=== PATIENT | female | born 1950 | race Two or more races ===

== ENCOUNTER 2022-04-26 10:28 | Outpatient (REF) | payer MEDICARE, SELFPAY ==
--- NOTE | ~2022-04-26 | MM_ITS ---
EXAMINATION: MM SCREENING DIGITAL BREAST TOMOSYNTHESIS, BILATERAL CLINICAL INFORMATION: Screening. Asymptomatic. The lifetime risk of breast cancer based on the Tyrer-Cuzick Model is 2.4%. COMPARISON: Mammography: December 15, 2014 TECHNIQUE: Digital breast tomosynthesis is performed in both the craniocaudal and mediolateral oblique views along with computer-aided detection (CAD). Synthesized 2D images are generated from the tomosynthesis. FINDINGS: The breasts are almost entirely fatty (ACR BI-RADS breast composition Category a). There are no significant masses, abnormal calcifications, or other abnormalities. MM/MM tomosynthesis screening BI IMPRESSION: No significant changes from prior exam. ASSESSMENT: BI-RADS 1: Negative RECOMMENDATION: Routine annual mammography screening. This patient's information was entered into a reminder system with a target due date for their next mammogram.
== END 2022-04-26 10:29 | disposition home or self-care (01) ==
LOC: HO.MAMMO 10:28
PROVIDERS: PCP Internal Medicine; Visit Provider Internal Medicine
DX: Z12.31 Encounter for screening mammogram for malignant neoplasm of breast (principal)
CPT/HCPCS: 77063; 77067

== ENCOUNTER 2023-04-06 10:38 | Outpatient (REF) | payer MEDICARE, SELFPAY ==
[2023-04-06 12:51] LABS: Alanine Aminotransferase 21 U/L (0-31); Albumin Level 4.3 g/dL (3.5-5.0); Alkaline Phosphatase 94 U/L (39-117); Anion Gap 15 (12-20); Aspartate Amino Transferase 23 U/L (5-31); Bilirubin Total 0.8 mg/dL (0.0-1.0); Blood Urea Nitrogen 15 mg/dL (9-16); Calcium 9.7 mg/dL (8.4-10.2); Carbon Dioxide 26 mmol/L (22-29); Chloride 105 mmol/L (96-108); Cholesterol 234 mg/dL; Estimated Glomerular Filt Rate > 60; Glucose Fasting 122 mg/dL (60-99); HDL Cholesterol 56 mg/dL; LDL Cholesterol Calculated 153 mg/dl; Potassium 4.3 mmol/L (3.3-5.1); Sodium 142 mmol/L (135-145); Triglycerides 127 mg/dL
== END 2023-04-06 10:39 | disposition home or self-care (01) ==
LOC: HO.LAB 10:38
PROVIDERS: PCP Internal Medicine; Visit Provider Internal Medicine
DX: I10 Essential (primary) hypertension (principal); E55.9 Vitamin D deficiency, unspecified
CPT/HCPCS: 36415; 80053; 80061; 82306

== ENCOUNTER 2023-04-13 13:25 | Outpatient (AMB) | payer MEDICARE, SELFPAY ==
--- NOTE | 2023-04-13 13:34 | A.OFFPC_ITS ---
Intake Visit Reasons: SWV G0439 Allergies No Known Allergies Allergy (Verified 08/31/22 10:39) Tobacco use date assessed: 08/31/22 [facility] Medical History Essential hypertension Hypovitaminosis D Obese Surgical History History of tubal ligation Hx of removal of ovary Family History Father Cancer Mother Diabetes Social History Housing: Apartment Alcohol intake: never Patient Tobacco Use Status: Never used Tobacco e-Cigarette/Vaping Use: Never Used Second Hand Smoke Exposure: No service: No Current occupational status: disabled Cognitive needs: No Hearing needs: No Vision needs: No Questionnaire Thrive Questionnaire Date Thrive assessed: 04/07/22 JERRICA-7 AMB Questionnaire JERRICA-7 Date JERRICA - 7 assessed: 04/07/22 Source: Developed by Drs. Melvin Pressley, Eloise Myers, Jose Luis Pinedo and colleagues, with an educational zahira from [employer]. Physical exam (Primary Care) Tobacco/Smoking Status: Tobacco use Status Tobacco use date assessed 08/31/22 08/31/22 10:41 Patient Tobacco Use Status Never used Tobacco 08/31/22 10:41 e-Cigarette/Vaping Use Never Used 08/31/22 10:41 Thrive Assessment: Date of Thrive Assessment Date Thrive assessed 04/07/22 09/15/22 12:55 Coding Diagnoses
[2023-04-13 13:40] VITALS: BP 170/72; PULSE 90; O2SAT 98; BMI 33.0
--- NOTE | 2023-04-13 13:54 | A.OFFVIS_ITS ---
Intake Vital Signs 04/13/23 13:40 04/13/23 13:57 Height 4 ft 11 in Weight 163 lb 3 oz BMI 33.0 BP 170/72 H 170/80 H Blood Pressure Location Lt brachial Lt brachial Position Sitting Sitting Pulse 90 Pulse Source Pulse Oximeter Pulse Oximetry (%) 98 Oxygen Delivery Method Room Air Intake Visit Reasons: RICKY [id number] Intake Note: Patient is here for an Annual Wellness Visit. Television Station Manager Required: No Accompanied by: Self / Same As Patient Allergies No Known Allergies Allergy (Verified 04/13/23 13:59) Medication List - Last Reconciled 04/13/23 by Iona Fisher MD cholecalciferol (vitamin D3) 50 mcg PO DAILY 90 days losartan 50 mg PO DAILY 90 days HPI HPI Comments History of Present Illness Details This is a 73-year-old female that comes for her Medicare wellness exam. Last mammogram was last year. Has never had a colonoscopy and prefer Cologuard. PPP handed to patient. Has never had a bone density. MOLST was done today. Blood pressure elevated and will be recheck in 3 weeks by nurse navigator. [facility] Medical History (Updated 04/13/23 @ 14:22 by Iona Fisher MD) Essential hypertension Hypovitaminosis D Obese Surgical History History of tubal ligation Hx of removal of ovary Family History Father Cancer Mother Diabetes Social History Housing: Apartment Alcohol intake: never Patient Tobacco Use Status: Never used Tobacco e-Cigarette/Vaping Use: Never Used Second Hand Smoke Exposure: No service: No Current occupational status: disabled Cognitive needs: No Hearing needs: No Vision needs: No Questionnaire Medicare Wellness Checkup [age] What gender do you identify with?: female During the past 4 weeks, how much have you been bothered by emotional problems such as feeling anxious, depressed, irritable, sad or downhearted, and blue?: not at all During the past 4 weeks, has your physical & emotional health limited your social activities with family, friends, neighbors, or groups?: not at all During the past 4 weeks, how much bodily pain have you generally had?: moderate pain During the past 4 weeks, was someone available to help you if you needed & wanted help?: no, not at all During the past 4 weeks, what was the hardest physical activity you could do for at least 2 minutes?: moderate Can you get to places out of walking distance without help? (For eg., can you travel alone on buses, taxis or drive your car?): Yes Can you go shopping for groceries or clothes without someone's help?: Yes Can you prepare your own meals?: Yes Can you do your housework without help?: Yes Because of any health problems, do you need the help of another person with your personal care needs such as eating, bathing, dressing or getting around the house?: No Can you handle your own money without help?: No During the past 4 weeks, how would you rate your health in general?: very good During the past 4 weeks how have things been going for you?: very well; could hardly better Are you having difficulties driving your car?: not applicable, I don't use a car Do you always fasten your seat belt when you are in a car?: yes, usually During past 4 weeks, have you been bothered by the following: never: Falling or dizzy when standing up, Sexual problems?, Trouble eating well?, Problems using the telephone? and Tiredness or fatigue? and sometimes: Teeth or denture problems? Have you fallen 2 or more times in the past year?: No Are you afraid of falling?: No Are you a smoker?: no During the past 4 weeks, how many drinks of wine, beer, or other alcoholic beverages did you have?: no alcohol at all Do you exercise for about 20 minutes 3 or more times a week?: yes, all the time Have you been given information to help with the following?: no: Hazards in your house that might hurt you? and no: Keeping track of your medications? How often do you have trouble taking medicines the way you have been told to take them?: I always take medicine as prescribed How confident are you that you can control & manage most of your health problems?: very confident What is your race?: or origin or descent Mini Mental State Exam (MMSE) Orientation What is the (year) (season) (date) (day) (month)?: year, season, date, day and month Where are we (state) (county) (town or city) (hospital) (floor)?: state, county, town or city and hospital/clinic Registration Name of 3 unrelated objects clearly and slowly, then ask patient to repeat all 3 of them. (1st repeat determines score. Make sure they can repeat all three): object 1, object 2 and object 3 Attention & Calculation (CHOOSE ONE) Spell WORLD backwards (DLROW): 4 letters Recall Ask patient to repeat the 3 items from question #3.: object 1, object 2 and object 3 Language Show patient a wristwatch & ask what it is. Repeat for pencil.: watch and pencil Ask the patient to repeat the phrase 'No ifs, ands, or buts' after you.: correct Ask the patient to 'take a piece of paper with their right hand' 'fold paper in half' 'place paper on floor': take paper in right hand, fold paper in half and place paper on floor Print the sentence 'CLOSE YOUR EYES' on a piece. If patient actually closes eyes then score.: followed written direction Give patient a blank piece of paper & ask to write a sentence. Score if it contains a noun & verb.: sentence contains subject and verb Score Score: 27 Activity of Daily Living Bathing - sponge bath, tub bath or shower: receives no assistance (gets in/out by self, if usual bathing means Dressing - getting clothes from closets & drawers, including inner/outer garments & fasteners.: gets clothes & gets completely dressed without help Toileting - going to the 'toilet room' for urine/bowel elimination & cleaning self/arranging clothes: goes to toilet room, cleans self, arranges clothes without help Transfer: moves in & out of bed and chair without help (may use support object) Continence: controls urination/bowel movements completely by self Feeding: feeds self without help Total Score: 0 Information obtained from: patient Using telephone: independent Traveling: independent Shopping: independent Preparing meals: independent Housework: independent Taking medicine: independent Managing money: independent PHQ-9 Over the last 2 weeks, how often have you been bothered by any of the following problems? 1. Little interest or pleasure in doing things: not at all 2. Feeling down, depressed, or hopeless: not at all 3. Trouble falling or staying asleep, or sleeping too much: not at all 4. Feeling tired or having little energy: not at all 5. Poor appetite or overeating: not at all 6. Feeling bad about yourself - or that you are a failure or have let yourself or your family down: not at all 7. Trouble concentrating on things, such as reading the newspaper or watching television: not at all 8. Moving or speaking so slowly that other people could have noticed. Or the opposite - being so fidgety or restless that you have been moving around a lot more than usual: not at all 9. Thoughts that you would be better off or of hurting yourself in some way: not at all Total score: 0 Depression Screening Interpretation: Negative 79562 - PHQ-9 Billing: Yes Source: Developed by Drs. Melvin Pressley, Eloise Myers, Jose Luis Pinedo and colleagues, with an educational zahira from [employer]. Review of Systems Const All systems reviewed & are unremarkable except as noted in HPI and below Eyes Reports no additional complaints, Denies change in vision and Denies other visual disturbances Card Denies chest pain at rest, Denies chest pain with activity, Denies edema, Denies irregular heart rhythm, Denies claudication, Denies dyspnea, Denies dyspnea on exertion, Denies orthopnea, Denies paroxysmal nocturnal dyspnea and Denies slow heart rate Resp Denies cough, Denies dyspnea and Denies dyspnea on exertion GI Denies abdominal pain, Denies change in bowel habits, Denies excessive flatus, Denies nausea and Denies vomiting Denies urinary incontinence, Denies urinary hesitancy and Denies urinary urgency Musc Denies abnormal gait, Denies atrophy, Denies deformity and Denies limited range of motion Skin/Breast Denies bleeding lesions, Denies changing lesions and Denies rash Neuro Denies abnormal gait and Denies lack of coordination Physical Exam Vital Signs: Last Vital Signs Pulse 90 04/13/23 13:40 BP 170/72 H 04/13/23 13:40 Pulse Ox 98 04/13/23 13:40 Oxygen Delivery Method Room Air 04/13/23 13:40 BMI result Body Mass Index 33.0 Resp Auscultation: clear to auscultation bilaterally Cardio Heart sounds: S1 normal heart sound present and S2 normal heart sound present Neuro Gait exam (Neuro): Normal gait present Romberg Test: Negative Extrem General: Yes full ROM Results AMB Hemoglobin A1c AMB Hemoglobin A1c 6.4 % Last Edit by DEBRA Arteaga on 04/13/23 14:07 Results Reviewed Results Reviewed: Laboratory Last Values Hgb A1c (Clinic) 6.4 % (4.0-6.0) H 04/13/23 14:06 Assessment & Plan Assessment & Plan (1) Encounter for Medicare annual wellness exam: Code(s): Z00.00 - Encounter for general adult medical examination without abnormal findings Plan: Repeat in a year. Orders: Orders Lipid Panel 6 Months E78.5 - Hyperlipidemia, unspecified Vitamin D 25-OH Total 6 Months E55.9 - Vitamin D deficiency, unspecified Comprehensive [place]. Panel Fast 6 Months I10 - Essential (primary) hypertension XR DEXA axial skeleton Today N95.9 - Unspecified menopausal and perimenopausal disorder MM screening mammo BI Today Z12.31 - Encounter for screening mammogram for malignant neoplasm of breast AMB Hemoglobin A1c Today Z13.1 - Encounter for screening for diabetes mellitus Referrals Cologuard Test Z12.11 - Encounter for screening for malignant neoplasm of colon, Z12.12 - Encounter for screening for malignant neoplasm of rectum Medications: New atorvastatin 20 mg PO BEDTIME 90 days 90 tabs 1RF E78.00 - Pure hypercholesterolemia, unspecified Quality Reporting (2019) Depression/Bipolar (159/160/161/177) PHQ-9: Total score: 0 Coding Level of Care Code Medicare Subsequent (G0439) Diagnoses Encounter for Medicare annual wellness exam Z00.00 Time Spent (min) 35 Advance Care Planning Advance Care Planning discussion: Completed/Scanned Date of discussion: 04/13/23 Who was present: patient and me
[2023-04-13 13:57] VITALS: BP 170/80
== END 2023-04-13 14:24 | disposition home or self-care (01) ==
PROVIDERS: Visit Provider Internal Medicine
DX: Z00.00 Encounter for general adult medical examination without abnormal findings (principal); Z13.1 Encounter for screening for diabetes mellitus
CPT/HCPCS: 83036; G0439

== ENCOUNTER 2023-05-11 12:22 | Outpatient (REF) | payer MEDICARE, SELFPAY ==
--- NOTE | ~2023-05-11 | MM_ITS ---
EXAMINATION: MM SCREENING DIGITAL BREAST TOMOSYNTHESIS, BILATERAL CLINICAL INFORMATION: Screening. Asymptomatic. COMPARISON: Mammography: This study is compared with prior exams dating back to 2015. TECHNIQUE: Digital breast tomosynthesis is performed in both the craniocaudal and mediolateral oblique views along with computer-aided detection (CAD). Synthesized 2D images are generated from the tomosynthesis. FINDINGS: The breasts are almost entirely fatty (ACR BI-RADS breast composition Category a). There are no significant masses, abnormal calcifications, or other abnormalities. MM/MM tomosynthesis screening BI IMPRESSION: No mammographic evidence of malignancy. ASSESSMENT: BI-RADS BI-RADS 1 - Negative RECOMMENDATION: Routine annual mammography screening. 1 year F/U This examination should not preclude the clinical evaluation of a suspicious palpable abnormality. This patient's information was entered into a reminder system with a target due date for their next mammogram.
--- NOTE | ~2023-05-11 | MM_ITS ---
EXAMINATION: BONE DENSITOMETRY CLINICAL INDICATION: Unspecified menopausal and perimenopausal disorder. COMPARISON: This is the patient's baseline examination. TECHNIQUE: Using a [employer] DXA System (software version: 13.1) manufactured by [employer], dual-energy x-ray absorptiometry was performed of the lumbar spine and left hip. The images are of good technical quality. Summary results are attached. FINDINGS: AP SPINE L1-L4: BMD 1.112 g/cm2, Z-score 0.9, T-score -0.6, normal. LEFT FEMUR, NECK: BMD 0.758 g/cm2, Z-score -0.4, T-score -2.0, osteopenia. LEFT FEMUR, TOTAL: BMD 0.869 g/cm2, Z-score 0.3, T-score -1.1, osteopenia. IDENTIFIED RISK FACTORS: Height loss, left oophorectomy, menopause. HISTORY OF FRACTURE: None listed. MEDICATIONS: Vitamin D. MM/XR DEXA axial skeleton IMPRESSION: 1. DIAGNOSIS: Osteopenia based on the lowest T-score value of -2.0 in the femoral neck applying World Health Organization criteria. 2. 10-YEAR FRACTURE RISK PREDICTION, FRAX: Major osteoporotic fracture (clinical spine, forearm, hip or shoulder) 7.0%. Hip fracture 1.6%. 3. Treatment Recommendations: NOF guidelines recommend consideration for treatment in postmenopausal women and men age 50 and older presenting with the following: -A hip or vertebral (clinical or morphometric) fracture. -T-score less than or equal to -2.5 at the femoral neck or spine after appropriate evaluation to exclude secondary causes. -Low bone mass at the hip or spine and a 10-year fracture probability by FRAX of greater than or equal to 3% for hip fracture or greater than or equal to 20% for major osteoporotic fracture based on the [place] adapted WHO algorithm. 4. Other Recommendations: All treatment decisions require clinical judgment and consideration of individual patient factors, including patient preferences, comorbidities, previous drug use, risk factors not captured in the FRAX model (e.g. frailty, falls, vitamin D deficiency, increased bone turnover, interval significant decline in bone density) and possible under or overestimation of fracture risk by FRAX. Additional medical evaluation for secondary cause of low bone mineral density may be appropriate. FUTURE SCAN RECOMMENDATION: People with diagnosed cases of osteoporosis or at high risk for fracture should have regular bone mineral density tests. For patients eligible for Medicare, routine testing is allowed once every 2 years. The testing frequency can be increased to one year for patients who have rapidly progressing disease, those who are receiving or discontinuing medical therapy to restore bone mass, or have additional risk factors.
== END 2023-05-11 12:23 | disposition home or self-care (01) ==
LOC: HO.MAMMO 12:22
PROVIDERS: PCP Internal Medicine; Visit Provider Internal Medicine
DX: Z12.31 Encounter for screening mammogram for malignant neoplasm of breast (principal); Z13.820 Encounter for screening for osteoporosis; Z78.0 Asymptomatic menopausal state
CPT/HCPCS: 77063; 77067; 77080

== ENCOUNTER → 2023-05-11 13:30 | Outpatient (BNV) | payer MEDICARE, SELFPAY | PROVIDERS: PCP Internal Medicine; Visit Provider Radiology Diagnostic Radiology | DX: Z12.31 Encounter for screening mammogram for malignant neoplasm of breast (principal) | CPT/HCPCS: 77063; 77067; 77080 ==

== ENCOUNTER 2023-10-17 12:23 | Outpatient (AMB) | payer MEDICARE, MEDICAID, SELFPAY ==
[2023-10-17 12:44] VITALS: BP 162/74; BMI 32.3
--- NOTE | 2023-10-17 12:44 | MHC.PC.OV ---
Vital Signs 10/17/23 12:44 10/17/23 13:54 Height 4 ft 11 in Weight 160 lb BMI 32.3 BP 162/74 H 160/70 H Blood Pressure Location Lt brachial Lt brachial Position Sitting Sitting Intake Visit Reasons: bp Intake Note: Patient here for a follow up BP Resort Manager Required: No Accompanied by: Self / Same As Patient Allergies No Known Allergies Allergy (Verified 10/17/23 13:00) Medication List - Last Reconciled 10/17/23 by Iona Fisher MD atorvastatin 20 mg PO BEDTIME 90 days cholecalciferol (vitamin D3) 50 mcg PO DAILY 90 days losartan 50 mg PO DAILY 90 days Tobacco use date assessed: 10/17/23 Fall risk assessment: No Falls in past year Last assessed Fall Risk: 10/17/23 Dental Screening Dental Screen Date: 10/17/23 Did you have a dental visit in the last 12 months?: Yes Did you have a dental problem in the last 6 months where you did not have access to dental care?: No Was dental information given to patient?: Patient has dentist HPI HPI Comments History of Present Illness Details This is a 73-year-old female with hypertension, pure hypercholesterolemia, osteopenia and low vitamin-D that comes today for follow-up on her conditions. Blood pressure elevated but she took it today at a.m. and it was 120/80. Blood pressure will be recheck with nurse navigator in 3 weeks. Lipid panel was ordered. On vitamin-D supplements for her low vitamin-D. Had bone density 2022 showing osteopenia and calcium was added but as per patient calcium gives her a headache. I suggest to take more calcium in her diet. No chest pain or shortness of breath. [facility] Medical History Obese Hypovitaminosis D Essential hypertension Surgical History Hx of removal of ovary History of tubal ligation Family History Father Cancer Mother Diabetes Social History Housing: Apartment Alcohol intake: never Patient Tobacco Use Status: Never used Tobacco e-Cigarette/Vaping Use: Never Used Second Hand Smoke Exposure: No service: No Current occupational status: disabled Cognitive needs: No Hearing needs: No Vision needs: No Questionnaire PHQ-9 Over the last 2 weeks, how often have you been bothered by any of the following problems? 1. Little interest or pleasure in doing things: not at all 2. Feeling down, depressed, or hopeless: not at all 3. Trouble falling or staying asleep, or sleeping too much: not at all 4. Feeling tired or having little energy: not at all 5. Poor appetite or overeating: not at all 6. Feeling bad about yourself - or that you are a failure or have let yourself or your family down: not at all 7. Trouble concentrating on things, such as reading the newspaper or watching television: not at all 8. Moving or speaking so slowly that other people could have noticed. Or the opposite - being so fidgety or restless that you have been moving around a lot more than usual: not at all 9. Thoughts that you would be better off or of hurting yourself in some way: not at all Total score: 0 Depression Screening Interpretation: Negative Depression Screening Done: Yes 99296 - PHQ-9 Billing: Yes Source: Developed by Drs. Melvin Pressley, Eloise Myers, Jose Luis Pinedo and colleagues, with an educational zahira from [employer]. Thrive Questionnaire Date Thrive assessed: 10/17/23 I am a: Patient What is your living situation today?: I have a steady place to live Within the past 12 months, did the food you bought not last and you didn't have the money to get more?: Never true Within the past 12 months, did you worry whether your food would run out before you got money to buy more?: Never true Do you have trouble paying for medicines?: No Do you have trouble getting transportation to medical appointments?: No Do you have trouble paying your heating and electricity bill?: No Do you have trouble taking care of your child, family member or friend?: No Do you have trouble with day-to-day activities such as bathing, preparing meals, shopping, managing finances, etc.?: No Are you currently unemployed and looking for a job?: No Are you interested in more education?: No Please select the resources that you would like help with: None Currently or been in a relationship where the following occur: no concerns reported THRIVE Score: 0 AUDIT C Alcohol Use Questionnaire (AUDIT-C) 1. How often do you have a drink containing alcohol?: Never Total Score: 0 JERRICA-7 AMB Questionnaire JERRICA-7 Date JERRICA - 7 assessed: 10/17/23 Feeling nervous, anxious, or on edge: 0 = Not at all Not being able to stop or control worryin = Not at all Worrying too much about different things: 0 = Not at all Trouble relaxin = Not at all Being so restless that it is hard to sit still: 0 = Not at all Becoming easily annoyed or irritable: 0 = Not at all Feeling afraid as if something awful might happen: 0 = Not at all Total JERRICA-7 score (0-4 normal; 5-9 mild; 10-14 moderate; 15-21 severe): 0 Source: Developed by Drs. Melvin Pressley, Eloise Myers, Jose Luis Pinedo and colleagues, with an educational zahira from [employer]. JERRICA-7 Assessment Billing JERRICA-7 Assessment Tool: JERRICA-7 Assessment 07433 Review of Systems Const All systems reviewed & are unremarkable except as noted in HPI and below Eyes Reports no additional complaints, Denies change in vision and Denies other visual disturbances Card Denies chest pain at rest, Denies chest pain with activity, Denies edema, Denies irregular heart rhythm, Denies claudication, Denies dyspnea, Denies dyspnea on exertion, Denies orthopnea, Denies paroxysmal nocturnal dyspnea and Denies slow heart rate Resp Denies cough, Denies dyspnea and Denies dyspnea on exertion GI Denies abdominal pain, Denies change in bowel habits, Denies excessive flatus, Denies nausea and Denies vomiting Denies urinary incontinence, Denies urinary hesitancy and Denies urinary urgency Musc Denies abnormal gait, Denies atrophy, Denies deformity and Denies limited range of motion Skin/Breast Denies bleeding lesions, Denies changing lesions and Denies rash Neuro Denies abnormal gait, Denies behavioral changes and Denies lack of coordination Psych Denies behavioral changes Physical exam (Primary Care) Vital Signs: Last Vital Signs BP 162/74 H 10/17/23 12:44 BMI result Body Mass Index 32.3 Tobacco/Smoking Status: Tobacco use Status Tobacco use date assessed 10/17/23 10/17/23 12:50 Patient Tobacco Use Status Never used Tobacco 10/17/23 12:50 e-Cigarette/Vaping Use Never Used 10/17/23 12:50 PHQ-9: PHQ-9 Score PHQ-9: Total score 0 10/17/23 13:02 Depression Screening Interpretation: Negative Thrive Assessment: Date of Thrive Assessment Date Thrive assessed 10/17/23 10/17/23 12:53 Currently or been in a relationship where the following occur: no concerns reported Eyes General: appearance normal, both eyes and all related structures Eyelids: Yes eyelids normal Conjunctivae: conjunctivae normal Neck Neck: Yes normal visual inspection and Yes supple Resp Effort & Inspection: normal respiratory effort Auscultation: clear to auscultation bilaterally Cardio Jugular venous distension: no JVD Rate: regular rate Rhythm: regular rhythm Heart sounds: S1 normal heart sound present and S2 normal heart sound present Extrem General: Yes full ROM Assessment and Plan Assessment & Plan (1) Essential hypertension: Code(s): I10 - Essential (primary) hypertension Plan: Continue losartan. Recheck blood pressure with nurse navigator in 3 weeks. Blood pressure goal is equal or less than 130/80. (2) Hypovitaminosis D: Code(s): E55.9 - Vitamin D deficiency, unspecified Plan: Continue vitamin-D supplements. (3) Pure hypercholesterolemia: Code(s): E78.00 - Pure hypercholesterolemia, unspecified Plan: Continue statins. Repeat lipid panel. (4) Osteopenia: Code(s): M85.80 - Other specified disorders of bone density and structure, unspecified site Plan: Increase calcium intake in diet. Repeat bone density in 2 years. Orders: Orders Vitamin D 25-OH Total Today E55.9 - Vitamin D deficiency, unspecified Comprehensive Fleming. Panel Fast Today E78.00 - Pure hypercholesterolemia, unspecified Medications: Refilled cholecalciferol (vitamin D3) 50 mcg PO DAILY 90 tabs 3RF 90 days atorvastatin 20 mg PO BEDTIME 90 tabs 1RF 90 days E78.00 - Pure hypercholesterolemia, unspecified losartan 50 mg PO DAILY 90 tabs 0RF 90 days I10 - Essential (primary) hypertension Coding Level of Care Code Est Pt Level 4 (65562) Diagnoses Essential hypertension I10 Hypovitaminosis D E55.9 Pure hypercholesterolemia E78.00 Osteopenia M85.80 Additional Codes JERRICA-7 Assessment Billing - JERRICA-7 Assessment Tool: JERRICA-7 Assessment 74887 ([id number]) Time Spent (min) 23
[2023-10-17 13:54] VITALS: BP 160/70
== END 2023-10-17 13:11 | disposition home or self-care (01) ==
PROVIDERS: PCP Internal Medicine; Visit Provider Internal Medicine
DX: I10 Essential (primary) hypertension (principal); E55.9 Vitamin D deficiency, unspecified; E78.00 Pure hypercholesterolemia, unspecified; M85.80 Other specified disorders of bone density and structure, unspecified site
CPT/HCPCS: 99214

== ENCOUNTER 2024-04-08 09:31 | Outpatient (REF) | payer MEDICARE, MEDICAID, SELFPAY ==
[2024-04-08 11:34] LABS: Alanine Aminotransferase 13 U/L (0-31); Albumin Level 4.3 g/dL (3.5-5.0); Alkaline Phosphatase 85 U/L (39-117); Anion Gap 11 (12-20); Aspartate Amino Transferase 18 U/L (5-31); Bilirubin Total 0.7 mg/dL (0.0-1.0); Blood Urea Nitrogen 16 mg/dL (9-16); Calcium 9.9 mg/dL (8.4-10.2); Carbon Dioxide 29 mmol/L (22-29); Chloride 106 mmol/L (96-108); Cholesterol 161 mg/dL (<200); Estimated Glomerular Filt Rate > 60; Glucose Fasting 130 mg/dL (60-99); HDL Cholesterol 57 mg/dL (>40); LDL Cholesterol Calculated 87 mg/dL (<100); Sodium 142 mmol/L (135-145); Total Protein 7.7 g/dL (6.5-8.0); Triglycerides 85 mg/dL (<150)
== END 2024-04-08 09:32 | disposition home or self-care (01) ==
LOC: HO.LAB 09:31
PROVIDERS: PCP Internal Medicine; Visit Provider Internal Medicine
DX: E78.5 Hyperlipidemia, unspecified (principal); E55.9 Vitamin D deficiency, unspecified; I10 Essential (primary) hypertension
CPT/HCPCS: 36415; 80053; 80061; 82306

== ENCOUNTER 2024-04-15 12:55 | Outpatient (AMB) | payer MEDICARE, MEDICAID, SELFPAY ==
[2024-04-15 13:08] VITALS: BP 170/82; BMI 33.1
--- NOTE | 2024-04-15 13:08 | A.OFFVIS_ITS ---
Intake Vital Signs 04/15/24 13:08 Height 4 ft 11 in Weight 164 lb BMI 33.1 BP 170/82 H Blood Pressure Location Lt brachial Position Sitting Intake Visit Reasons: SWV G0439 Intake Note: Patient here for a subsequent annual wellness visit Manager Of Purchasing Required: No Accompanied by: Self / Same As Patient Allergies No Known Allergies Allergy (Verified 04/15/24 13:44) Medication List - Last Reconciled 04/15/24 by Iona Fisher MD atorvastatin 20 mg PO BEDTIME 90 days cholecalciferol (vitamin D3) 50 mcg PO DAILY 90 days losartan 50 mg PO DAILY 90 days HPI HPI Comments History of Present Illness Details This is a 74-year-old female that comes for her Medicare wellness exam. Just diagnosed with diabetes mellitus type 2 with A1c over 6.5 and 2 fasting blood glucose over 126. Will start metformin. Also diabetic yearly eye exam. Mammogram done less than a year ago. Declines colonoscopy, Cologuard or fit test. DEXA scan done 2022. PPP handed to patient. [place] of care was reviewed. [facility] Medical History (Updated 04/15/24 @ 14:25 by Iona Fisher MD) Obese Hypovitaminosis D Essential hypertension Surgical History Hx of removal of ovary History of tubal ligation Family History Father Cancer Mother Diabetes Social History Housing: Apartment Alcohol intake: never Patient Tobacco Use Status: Never used Tobacco e-Cigarette/Vaping Use: Never Used Second Hand Smoke Exposure: No service: No Current occupational status: disabled Cognitive needs: No Hearing needs: No Vision needs: No Questionnaire Medicare Wellness Checkup [age] What gender do you identify with?: female During the past 4 weeks, how much have you been bothered by emotional problems such as feeling anxious, depressed, irritable, sad or downhearted, and blue?: not at all During the past 4 weeks, has your physical & emotional health limited your social activities with family, friends, neighbors, or groups?: not at all During the past 4 weeks, how much bodily pain have you generally had?: very mild pain During the past 4 weeks, was someone available to help you if you needed & wanted help?: no, not at all During the past 4 weeks, what was the hardest physical activity you could do for at least 2 minutes?: very light Can you get to places out of walking distance without help? (For eg., can you travel alone on buses, taxis or drive your car?): Yes Can you go shopping for groceries or clothes without someone's help?: No Can you prepare your own meals?: Yes Can you do your housework without help?: Yes Because of any health problems, do you need the help of another person with your personal care needs such as eating, bathing, dressing or getting around the house?: No Can you handle your own money without help?: Yes During the past 4 weeks, how would you rate your health in general?: fair During the past 4 weeks how have things been going for you?: very well; could hardly better Are you having difficulties driving your car?: no Do you always fasten your seat belt when you are in a car?: yes, usually During past 4 weeks, have you been bothered by the following: never: Falling or dizzy when standing up, Sexual problems?, Trouble eating well?, Problems using the telephone? and Tiredness or fatigue? and sometimes: Teeth or denture problems? Have you fallen 2 or more times in the past year?: No Are you afraid of falling?: Yes Are you a smoker?: no During the past 4 weeks, how many drinks of wine, beer, or other alcoholic beverages did you have?: no alcohol at all Do you exercise for about 20 minutes 3 or more times a week?: yes, most of the time Have you been given information to help with the following?: yes: Keeping track of your medications? and no: Hazards in your house that might hurt you? How often do you have trouble taking medicines the way you have been told to take them?: I always take medicine as prescribed How confident are you that you can control & manage most of your health problems?: somewhat confident What is your race?: or origin or descent Mini Mental State Exam (MMSE) Orientation What is the (year) (season) (date) (day) (month)?: year, season, date, day and month Where are we (state) (county) (town or city) (hospital) (floor)?: state, county, town or city, hospital/clinic and floor Registration Name of 3 unrelated objects clearly and slowly, then ask patient to repeat all 3 of them. (1st repeat determines score. Make sure they can repeat all three): object 1, object 2 and object 3 Attention & Calculation (CHOOSE ONE) Spell WORLD backwards (DLROW): 5 letters Recall Ask patient to repeat the 3 items from question #3.: object 1, object 2 and object 3 Language Show patient a wristwatch & ask what it is. Repeat for pencil.: watch and pencil Ask the patient to repeat the phrase 'No ifs, ands, or buts' after you.: correct Ask the patient to 'take a piece of paper with their right hand' 'fold paper in half' 'place paper on floor': take paper in right hand, fold paper in half and place paper on floor Print the sentence 'CLOSE YOUR EYES' on a piece. If patient actually closes eyes then score.: followed written direction Give patient a blank piece of paper & ask to write a sentence. Score if it contains a noun & verb.: sentence contains subject and verb Score Score: 29 Activity of Daily Living Bathing - sponge bath, tub bath or shower: receives no assistance (gets in/out by self, if usual bathing means Dressing - getting clothes from closets & drawers, including inner/outer garments & fasteners.: gets clothes & gets completely dressed without help Toileting - going to the 'toilet room' for urine/bowel elimination & cleaning self/arranging clothes: goes to toilet room, cleans self, arranges clothes without help Transfer: moves in & out of bed and chair without help (may use support object) Continence: controls urination/bowel movements completely by self Feeding: feeds self without help Total Score: 0 Information obtained from: patient Using telephone: independent Traveling: independent Shopping: independent Preparing meals: independent Housework: independent Taking medicine: independent Managing money: independent PHQ-9 Over the last 2 weeks, how often have you been bothered by any of the following problems? 1. Little interest or pleasure in doing things: not at all 2. Feeling down, depressed, or hopeless: not at all 3. Trouble falling or staying asleep, or sleeping too much: not at all 4. Feeling tired or having little energy: not at all 5. Poor appetite or overeating: not at all 6. Feeling bad about yourself - or that you are a failure or have let yourself or your family down: not at all 7. Trouble concentrating on things, such as reading the newspaper or watching television: not at all 8. Moving or speaking so slowly that other people could have noticed. Or the opposite - being so fidgety or restless that you have been moving around a lot more than usual: not at all 9. Thoughts that you would be better off or of hurting yourself in some way: not at all Total score: 0 Depression Screening Interpretation: Negative Depression Screening Done: Yes 98230 - PHQ-9 Billing: Yes Source: Developed by Drs. Melvin Pressley, Elosie Myers, Jose Luis Pinedo and colleagues, with an educational zahira from [employer]. JERRICA-7 AMB Questionnaire JERRICA-7 Date JERRICA - 7 assessed: 04/15/24 Feeling nervous, anxious, or on edge: 0 = Not at all Not being able to stop or control worryin = Not at all Worrying too much about different things: 0 = Not at all Trouble relaxin = Not at all Being so restless that it is hard to sit still: 0 = Not at all Becoming easily annoyed or irritable: 0 = Not at all Feeling afraid as if something awful might happen: 0 = Not at all Total JERRICA-7 score (0-4 normal; 5-9 mild; 10-14 moderate; 15-21 severe): 0 Source: Developed by Drs. Melvin Pressley, Eloise Myers, Jose Luis Pinedo and colleagues, with an educational zahira from [employer]. JERRICA-7 Assessment Billing JERRICA-7 Assessment Tool: JERRICA-7 Assessment 40671 Fall Risk Assessment Fall Risk Assessment Fall risk assessment: No Falls in past year Thrive Questionnaire Date Thrive assessed: 04/15/24 I am a: Patient What is your living situation today?: I have a steady place to live Within the past 12 months, did the food you bought not last and you didn't have the money to get more?: Never true Within the past 12 months, did you worry whether your food would run out before you got money to buy more?: Never true Do you have trouble paying for medicines?: No Do you have trouble getting transportation to medical appointments?: No Do you have trouble paying your heating and electricity bill?: No Do you have trouble taking care of your child, family member or friend?: No Do you have trouble with day-to-day activities such as bathing, preparing meals, shopping, managing finances, etc.?: No Are you currently unemployed and looking for a job?: No Are you interested in more education?: No Please select the resources that you would like help with: None Currently or been in a relationship where the following occur: No concerns reported THRIVE Score: 0 AUDIT C Alcohol Use Questionnaire (AUDIT-C) 1. How often do you have a drink containing alcohol?: Never Total Score: 0 Score Reviewed/Action Taken: No Review of Systems Const All systems reviewed & are unremarkable except as noted in HPI and below Card Denies chest pain at rest, Denies chest pain with activity, Denies edema, Denies irregular heart rhythm, Denies claudication, Denies dyspnea, Denies dyspnea on exertion, Denies orthopnea, Denies paroxysmal nocturnal dyspnea and Denies slow heart rate Resp Denies cough, Denies dyspnea and Denies dyspnea on exertion GI Denies abdominal pain, Denies change in bowel habits, Denies excessive flatus, Denies nausea and Denies vomiting Denies urinary incontinence, Denies urinary hesitancy and Denies urinary urgency Neuro Denies confusion Psych Denies confusion Physical Exam Vital Signs: Last Vital Signs BP 170/82 H 04/15/24 13:08 BMI result Body Mass Index 33.1 Const General: No confusion Orientation/consciousness: patient oriented x3 and No confusion Neuro General: patient oriented x3, no focal motor deficits and No confusion Gait exam (Neuro): Normal gait present Romberg Test: Negative Extrem General: Yes full ROM Results AMB Hemoglobin A1c AMB Hemoglobin A1c 6.8 % Last Edit by NEVA Arrington on 04/15/24 14:0 2 Immunizations pneumoc 20-[place] conj-dip cr(PF) 0.5 mL IM syringe Performing Provider: Iona Fisher MD [facility] Administered by: NEVA Arrington on 04/15/24 14:04 Dose Route Admin Location Dispensed Lot Number Expiration Date [employer] Financial Rep 0.5 mL IM Right Deltoid 0.5 mL [id number] 02/02/25 9480-8431-82 WYETH/PFIZER VIS Given Date VIS Provided VIS Publication Date 04/15/24 Single Vaccine 21 Eligibility Eligibility Date Funding Source Not [facility] Eligible 04/15/24 Private Results Reviewed Results Reviewed: Laboratory Last Values Hgb A1c (Clinic) 6.8 % (4.0-6.0) H 04/15/24 13:53 Assessment & Plan Assessment & Plan (1) Encounter for Medicare annual wellness exam: Code(s): Z00.00 - Encounter for general adult medical examination without abnormal findings Plan: Repeat in a year. (2) Diabetes mellitus: Code(s): E11.9 - Type 2 diabetes mellitus without complications Qualifiers: Diabetes mellitus type: type 2 Diabetes mellitus storage manager insulin use: without storage manager use Diabetes mellitus complication status: without complication Qualified Code(s): E11.9 - Type 2 diabetes mellitus without complications Plan: Start metformin. A1c goal is equal or less than 7%. Orders: Orders AMB Hemoglobin A1c Today R73.01 - Impaired fasting glucose Pneumococcal 20 Immunization Today Z23 - Encounter for immunization Referrals Ophthalmology Referral E11.9 - Type 2 diabetes mellitus without complications Medications: New blood-glucose meter (FreeStyle Lite Meter kit) As directed 1 ea 0RF E11.9 - Type 2 diabetes mellitus without complications blood sugar diagnostic (FreeStyle Lite Strips) Use 1 test strip once a day 50 ea 6RF E11.9 - Type 2 diabetes mellitus without complications lancets (FreeStyle Lancets) Use 1 lancet once a day 100 ea 1RF E11.9 - Type 2 diabetes mellitus without complications metformin 500 mg PO BID 180 tabs 1RF 90 days E11.9 - Type 2 diabetes mellitus without complications losartan 100 mg PO DAILY 90 tabs 3RF 90 days Discontinued losartan Discontinued Reason: Patient Completed Course 50 mg PO DAILY 90 days 90 tabs 0RF I10 - Essential (primary) hypertension Quality Reporting (2019) Fall Risk Screening ([facility] [address]) Fall risk assessment: No Falls in past year Depression/Bipolar (159/160/161/177) PHQ-9: Total score: 0 Coding Level of Care Code Medicare Subsequent (G0439) Diagnoses Encounter for Medicare annual wellness exam Z00.00 Type 2 diabetes mellitus without complication, without long-term current use of insulin E11.9 Diabetes mellitus type: type 2 Diabetes mellitus storage manager insulin use: without fci use Diabetes mellitus complication status: without complication CPT Codes Advance Care Planning - Time spent: 1-15 minutes, on File ([id number]) Additional Codes JRERICA-7 Assessment Billing - JERRICA-7 Assessment Tool: JERRICA-7 Assessment 91515 ([id number]) Time Spent (min) 34 Advance Care Planning Advance Care Planning discussion: Exists, not on file Date of discussion: 04/15/24 Who was present: patient and me Forms completed: Health Care Proxy Time spent: 1-15 minutes, on File Actual minutes spent: 2
== END 2024-04-15 14:10 | disposition home or self-care (01) ==
PROVIDERS: PCP Internal Medicine; Visit Provider Internal Medicine
DX: Z00.00 Encounter for general adult medical examination without abnormal findings (principal); E11.9 Type 2 diabetes mellitus without complications; R73.01 Impaired fasting glucose; Z23 Encounter for immunization
CPT/HCPCS: 1123F; 83036; 90471; 90677; G0439

== ENCOUNTER 2024-09-12 10:24 | Outpatient (REF) | payer MEDICARE, MEDICAID, SELFPAY | END 2024-09-12 10:25 | disposition home or self-care (01) | LOC: HO.LAB 10:24 | PROVIDERS: PCP Internal Medicine; Visit Provider Internal Medicine | DX: Z13.89 Encounter for screening for other disorder (principal) ==

== ENCOUNTER 2024-09-16 13:04 | Outpatient (AMB) | payer MEDICARE, MEDICAID, SELFPAY ==
--- NOTE | 2024-09-16 13:12 | A.OFFPC_ITS ---
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 Hadoop Architect Language: Weight Recorder Name: Iona Fisher MD Information Interpreted: non-clinical & clinical Accompanied by: Self / Same As Patient Allergies No Known Allergies Allergy (Verified 09/16/24 13:34) Medication List - Last Reconciled 09/16/24 by Iona Fisher MD atorvastatin 20 mg PO BEDTIME 90 days blood pressure test kit-medium As directed blood sugar diagnostic (FreeStyle Lite Strips) Use 1 test strip 2 times per day blood-glucose meter (FreeStyle Lite Meter kit) As directed cholecalciferol (vitamin D3) 50 mcg PO DAILY 90 days lancets (TRUEplus Lancets) USE DIRECTED TO TEST BLOOD SUGAR EVERY DAY losartan 100 mg PO DAILY 90 days metformin 500 mg PO BID 90 days Tobacco use date assessed: 09/16/24 Fall risk assessment: No Falls in past year Last assessed Fall Risk: 09/16/24 Dental Screening Dental Screen Date: 09/16/24 Did you have a dental visit in the last 12 months?: Yes Did you have a dental problem in the last 6 months where you did not have access to dental care?: No Was dental information given to patient?: Patient has dentist HPI HPI Comments History of Present Illness Details The patient is a 74-year-old female presenting for a follow-up appointment regarding her Type 2 Diabetes Mellitus, Essential Hypertension, osteopenia and Hyperlipidemia management. The patient's diabetes is currently well-controlled, as evidenced by an A1c level of 6.5%. She has been actively managing her condition, suggesting a recent improvement in blood sugar control. Her blood pressure has also decreased since the last visit, with current measurements described as excellent. The patient does not report any new symptoms or worsening of existing symptoms related to her diabetes or hypertension at this time. For hyperlipidemia, the patient has been prescribed atorvastatin 20 mg to be taken at night; however, it was indicated that she requires a prescription refill for continued management. No recent exacerbation or complications related to these conditions have been reported. The patient is a 74-year-old female presenting for a follow-up appointment regarding her Type 2 Diabetes Mellitus, Essential Hypertension, and Hyperlipidemia management. The patient's diabetes is currently well-controlled, as evidenced by an A1c level of 6.5%. She has been actively managing her condition, suggesting a recent improvement in blood sugar control. Her blood pressure has also decreased since the last visit, with current measurements described as excellent. The patient does not report any new symptoms or worsening of existing symptoms related to her diabetes or hypertension at this time. For hyperlipidemia, the patient has been prescribed atorvastatin 20 mg to be taken at night; however, it was indicated that she requires a prescription refill for continued management. No recent exacerbation or complications related to these conditions have been reported. Takes calcium with vitamin-D for her osteopenia which was diagnosed in 2022. DEXA scan will be repeated this year. [facility] Medical History Obese Hypovitaminosis D Essential hypertension Surgical History Hx of removal of ovary History of tubal ligation Family History Father Cancer Mother Diabetes Social History Housing: Apartment Alcohol intake: never Patient Tobacco Use Status: Never used Tobacco e-Cigarette/Vaping Use: Never Used Second Hand Smoke Exposure: No service: No Current occupational status: disabled Cognitive needs: No Hearing needs: No Vision needs: No Questionnaire PHQ-9 Over the last 2 weeks, how often have you been bothered by any of the following problems? 1. Little interest or pleasure in doing things: not at all 2. Feeling down, depressed, or hopeless: not at all 3. Trouble falling or staying asleep, or sleeping too much: not at all 4. Feeling tired or having little energy: not at all 5. Poor appetite or overeating: not at all 6. Feeling bad about yourself - or that you are a failure or have let yourself or your family down: not at all 7. Trouble concentrating on things, such as reading the newspaper or watching television: not at all 8. Moving or speaking so slowly that other people could have noticed. Or the opposite - being so fidgety or restless that you have been moving around a lot more than usual: not at all 9. Thoughts that you would be better off or of hurting yourself in some way: not at all Total score: 0 Depression Screening Interpretation: Negative Depression Screening Done: Yes 11066 - PHQ-9 Billing: Yes Source: Developed by Drs. Melvin Pressley, Eloise Myers, Jose Luis Pinedo and colleagues, with an educational zahira from [employer]. Thrive Questionnaire Date Thrive assessed: 09/16/24 I am a: Patient What is your living situation today?: I have a steady place to live Within the past 12 months, did the food you bought not last and you didn't have the money to get more?: Never true Within the past 12 months, did you worry whether your food would run out before you got money to buy more?: Never true Do you have trouble paying for medicines?: No Do you have trouble getting transportation to medical appointments?: No Do you have trouble paying your heating and electricity bill?: No Do you have trouble taking care of your child, family member or friend?: No Do you have trouble with day-to-day activities such as bathing, preparing meals, shopping, managing finances, etc.?: No Are you currently unemployed and looking for a job?: No Are you interested in more education?: No Please select the resources that you would like help with: None Currently or been in a relationship where the following occur: No concerns reported THRIVE Score: 0 AUDIT C Alcohol Use Questionnaire (AUDIT-C) 1. How often do you have a drink containing alcohol?: Never Total Score: 0 Score Reviewed/Action Taken: No JERRICA-7 AMB Questionnaire JERRICA-7 Date JERRICA - 7 assessed: 09/16/24 Feeling nervous, anxious, or on edge: 0 = Not at all Not being able to stop or control worryin = Not at all Worrying too much about different things: 0 = Not at all Trouble relaxin = Not at all Being so restless that it is hard to sit still: 0 = Not at all Becoming easily annoyed or irritable: 0 = Not at all Feeling afraid as if something awful might happen: 0 = Not at all Total JERRICA-7 score (0-4 normal; 5-9 mild; 10-14 moderate; 15-21 severe): 0 Source: Developed by Drs. Melvin Pressley, Eloise Myers, Jose Luis Pinedo and colleagues, with an educational zahira from [employer]. JERRICA-7 Assessment Billing JERRICA-7 Assessment Tool: JERRICA-7 Assessment 97661 Review of Systems Const All systems reviewed & are unremarkable except as noted in HPI and below Eyes Reports no additional complaints, Denies change in vision and Denies other visual disturbances Card Denies chest pain at rest, Denies chest pain with activity, Denies edema, Denies irregular heart rhythm, Denies claudication, Denies dyspnea, Denies dyspnea on exertion, Denies orthopnea, Denies paroxysmal nocturnal dyspnea and Denies slow heart rate Resp Denies cough, Denies dyspnea and Denies dyspnea on exertion Physical exam (Primary Care) Vital Signs: Last Vital Signs BP 140/76 H 09/16/24 13:13 BMI result Body Mass Index 33.1 Tobacco/Smoking Status: Tobacco use Status Tobacco use date assessed 09/16/24 09/16/24 13:16 Patient Tobacco Use Status Never used Tobacco 09/16/24 13:16 e-Cigarette/Vaping Use Never Used 09/16/24 13:16 PHQ-9: PHQ-9 Score PHQ-9: Total score 0 09/16/24 13:16 Depression Screening Interpretation: Negative Thrive Assessment: Date of Thrive Assessment Date Thrive assessed 09/16/24 09/16/24 13:16 Currently or been in a relationship where the following occur: No concerns reported Resp Effort & Inspection: normal respiratory effort Auscultation: clear to auscultation bilaterally Cardio Jugular venous distension: no JVD Rate: regular rate Rhythm: regular rhythm Heart sounds: S1 normal heart sound present and S2 normal heart sound present Extrem General: Yes full ROM Office Procedures Flu Questionnaire Does the patient have a severe egg allergy?: No Results AMB Hemoglobin A1c AMB Hemoglobin A1c 6.5 % Last Edit by NEVA Arrington on 09/16/24 13:3 4 Immunizations Fluarix Triv [id number] (PF) 45 mcg (15 mcg x 3)/0.5 mL IM syringe Performing Provider: Iona Fisher MD [facility] Documented (not given) by: NEVA Arrington on 09/16/24 13:24 Reason Not Given: Patient Refused Coding Level of Care Code Est Pt Level 4 (26437) Complex EM visit Add On G2211 Diagnoses Type 2 diabetes mellitus without complication, without long-term current use of insulin E11.9 Diabetes mellitus type: type 2 Diabetes mellitus group home insulin use: without group home use Diabetes mellitus complication status: without complication Essential hypertension I10 Pure hypercholesterolemia E78.00 Osteopenia M85.80 Additional Codes PHQ-9 - 67024 - PHQ-9 Billing: Yes ([id number]) JERRICA-7 Assessment Billing - JERRICA-7 Assessment Tool: JERRICA-7 Assessment 45345 ([id number]) Time Spent (min) 23 Assessment & Plan Assessment & Plan (1) Diabetes mellitus: Code(s): E11.9 - Type 2 diabetes mellitus without complications Category: Medical Qualifiers: Diabetes mellitus 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 insulin use: without group home use Diabetes mellitus complication status: without complication Qualified Code(s): E11.9 - Type 2 diabetes mellitus without complications (2) Essential hypertension: Code(s): I10 - Essential (primary) hypertension Category: Medical (3) Pure hypercholesterolemia: Code(s): E78.00 - Pure hypercholesterolemia, unspecified Category: Medical (4) Osteopenia: Code(s): M85.80 - Other specified disorders of bone density and structure, unspecified site Category: Medical Plan - Refill and continuation of atorvastatin 20 mg for hyperlipidemia management, with intake at night recommended. - Laboratory tests are to be conducted in six months to assess glucose, kidney function, and lipid levels. - Emphasize the need for fasting prior to lab tests to ensure accurate results. - Coordinate with transportation services as needed for future laboratory appointments. - Schedule a follow-up visit in six months for comprehensive reassessment of diabetes, hypertension, and lipid levels. Patient was informed and verbally consented to the use of an ambient scribe for clinic note documentation during this visit. During this visit, I reviewed the patient's current management strategies for her chronic conditions. We discussed the satisfactory control of her Type 2 Diabetes Mellitus as indicated by her recent A1c level and the improvement in her blood pressure readings. I emphasized the importance of adherence to her medication regimen, particularly for managing her hyperlipidemia with atorvastatin 20 mg. We also addressed the need for accurate laboratory testing and clarified the requirement of fasting prior to sample collection. The patient voiced concerns about previous transportation issues and these were discussed, offering reassurance and guidance for future appointments. I confirmed that she should feel comfortable contacting the clinic if any issues arise prior to tests. Follow-up care appointments were scheduled according to the outlined plan to monitor her ongoing management effectively. Orders: Orders Lipid Panel 6 Months E78.5 - Hyperlipidemia, unspecified Microalbumin, Random (w Creat) 6 Months R80.9 - Proteinuria, unspecified Influenza [id number] Immunization Today Z23 - Encounter for immunization AMB Hemoglobin A1c Today E11.9 - Type 2 diabetes mellitus without complications Vitamin D 25-OH Total 6 Months E55.9 - Vitamin D deficiency, unspecified Comprehensive [place]. Panel Fast 6 Months E78.00 - Pure hypercholesterolemia, unspecified XR DEXA axial skeleton 8 Months Z78.0 - Asymptomatic menopausal state Medications: Refilled atorvastatin 20 mg PO BEDTIME 90 days 90 tabs 1RF E78.00 - Pure hypercholesterolemia, unspecified Patient Instructions: - Continue taking atorvastatin 20 mg at night as prescribed. - Plan to attend the lab in six months for glucose, kidney, and cholesterol tests, ensuring to fast prior. - Report any new symptoms or issues that may arise before the next appointment. - Verify transportation arrangements in advance of lab tests to avoid any disruptions. - Follow up in six months for reassessment.
[2024-09-16 13:13] VITALS: BP 140/76; BMI 33.1
== END 2024-09-16 13:47 | disposition home or self-care (01) ==
PROVIDERS: PCP Internal Medicine; Visit Provider Internal Medicine
DX: E11.9 Type 2 diabetes mellitus without complications (principal); I10 Essential (primary) hypertension; E78.00 Pure hypercholesterolemia, unspecified; M85.80 Other specified disorders of bone density and structure, unspecified site; Z23 Encounter for immunization

== ENCOUNTER → 2024-09-16 13:04 | Outpatient (BNVA) | payer MEDICARE, MEDICAID, SELFPAY | PROVIDERS: PCP Internal Medicine; Visit Provider Internal Medicine | DX: E11.9 Type 2 diabetes mellitus without complications (principal); E78.00 Pure hypercholesterolemia, unspecified; I10 Essential (primary) hypertension; M85.80 Other specified disorders of bone density and structure, unspecified site | CPT/HCPCS: 83036; 90471; 96127; 99212 ==

== ENCOUNTER 2025-05-14 10:35 | Outpatient (REF) | payer MEDICARE, OTHER, SELFPAY ==
[2025-05-14 12:28] LABS: Alanine Aminotransferase 16 U/L (0-31); Albumin Level 4.6 g/dL (3.5-5.0); Alkaline Phosphatase 90 U/L (39-117); Anion Gap 13 (12-20); Aspartate Amino Transferase 22 U/L (5-31); Blood Urea Nitrogen 19 mg/dL (9-16); Calcium 9.4 mg/dL (8.4-10.2); Carbon Dioxide 28 mmol/L (22-29); Chloride 107 mmol/L (96-108); Cholesterol 215 mg/dL (<200); Estimated Glomerular Filt Rate > 60; HDL Cholesterol 57 mg/dL (>40); Potassium 4.3 mmol/L (3.3-5.1); Sodium 144 mmol/L (135-145); Total Protein 7.8 g/dL (6.5-8.0); Triglycerides 98 mg/dL (<150)
--- OUTSIDE RECORDS SUMMARY | 2025-05-14 13:08 | XMS_ITS | Clinical Summary ---
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 Activ e atorvastatin (Lipitor) 20 MG tablet Take 20 mg by mouth in the morning. Active acetaminophen (Tylenol) 500 MG tablet Take 1 tablet (500 mg) by mouth every 6 (six) hours if needed for mild pain for up to 20 doses. 20 tablet 4 Active ibuprofen 600 MG tablet Take 1 tablet (600 mg) by mouth every 6 (six) hours if needed for mild pain for up to 20 doses. 20 tablet 4 Active chlorhexidine (Peridex) 0.12 % solution Swish 15 mL morning and night for 1 minute. Spit, do not swallow. Do not eat or drink for 30 minutes following use. 473 mL 4 Active Additional Information Patient not taking.Reported on 07/26/2024 cholecalciferol (Vitamin D-3) 50 MCG (2000 UT) tablet Take 50 mcg by mouth Once per day. 4 Active metFORMIN (Glucophage) 500 MG tablet Take 500 mg by mouth 2 times daily. 4 Active TRUEplus Lancets 33G misc USE DIRECTED TO TEST BLOOD SUGAR EVERY DAY 4 Active FREESTYLE LITE test strip USE DIRECTED TO TEST BLOOD SUGAR TWICE DAILY 4 Active clindamycin (Cleocin) 300 MG capsule Take 1 capsule by mouth every 6 (six) hours. 0 Active Blood Glucose Monitoring Suppl (FreeStyle [place] Lite) w/Device kit USE DIRECTED TO TEST BLOOD SUGAR EVERY DAY 4 Active Ibuprofen capsule Take 1 capsule by mouth every 6 (six) hours. 0 Active losartan (Cozaar) 100 MG tablet Take 100 mg by mouth Once per day. 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 Dental caries 07/04/2023 Periodontal disease 07/04/2023 Social History Tobacco Use Types Packs/Day Years Used Date Smoking Tobacco: Never Smokeless Tobacco: Never Tobacco Cessation:Counseling Given: Not Answered Alcohol Use Standard Drinks/Week Comments Never 0 (1 standard drink = 0.6 oz pur e alcohol) Comments Unknown Sex and Gender Information Value Date Recorded Sex Assigned at Female 07/04/2022 10:37 AM EDT Legal Sex Female 10:37 AM EDT Gender Identity Female 07/04/2022 10:37 AM EDT Sexual Orientation Choose not to disclose 2021 10:37 AM EDT Last Filed Vital Signs Vital Sign Reading Time Taken Comments Blood Pressure 128/74 08/19/2024 3:10 PM EST Pulse - - Temperature - - Respiratory Rate - - Oxygen Saturation - - Inhaled Oxygen Concentration - - Weight - - Height - - Body Mass Index - - Plan of Treatment Health Maintenance Due Date Last Done Comments CT Colonography 1950 Colonoscopy 1950 Colorectal Cancer Screening 1950 Dental Prophylaxis 1950 Depression Screening 1950 FIT DNA/Cologuard 1950 FIT 1950 FOBT 1950 SDOH Screening 1950 Sigmoidoscopy 1950 Alcohol/Substance Use Screening 1962 Hepatitis C Screening 02/04/1968 DTaP/Tdap/Td Vaccines (1 - Tdap) 1969 Zoster Vaccines (1 of 2) 02/04/2000 Dental Oral Exam 01/03/2024 07/04/2023, 09/10/2020 Dental X-Ray: Bitewings 07/05/2024 07/04/2023 RSV Patients and Patients Aged 60 years or older (1 - 1-dose 75+ series) 2025 COVID-19 Vaccine (3 - 2024-2 6 season) 2025 04/29/2021, 04/08/2021 Influenza Vaccine (#1) 2025 Tobacco Screening 08/19/2025 08/19/2024 Dental X-Ray: Full Mouth 07/05/2026 023, 08/27/2020 Pneumococcal Vaccine: 50+ Years Completed 04/15/2024 HIB Vaccines Aged Out No longer eligi ble based on patient's age to complete this topic HPV Vaccines Aged Out No longer eligi ble based on patient's age to complete this topic Hepatitis A Vaccines Aged Out No long er eligible based on patient's age to complete this topic Hepatitis B Vaccines Aged Out No long er eligible based on patient's age to complete this topic IPV Vaccines Aged Out No longer eligi ble based on patient's age to complete this topic Meningococcal B Vaccine Aged Out No l onger eligible based on patient's age to complete this topic Meningococcal Vaccine Aged Out No dedrick jaydon eligible based on patient's age to complete this topic RSV under 20 months Aged Out No longe r eligible based on patient's age to complete this topic Rotavirus Vaccines Aged Out No longer eligible based on patient's age to complete this topic Procedures Procedure Name Priority Date/Time Associated Diagnosis Comments INTRAORAL - COMPLETE SERIES OF RADIOGRAPHIC IMAGES Routine 07/04/2023 10:30 AM EDT COMPREHENSIVE ORAL EVALUATION - NEW OR ESTABLISHED PATIENT Routine 07/04/2023 10:30 AM EDT from Last 3 Months or Most Recently Relevant to Health Maintenance Insurance DENTAL - HSN FULL (MEDICAID)
[2025-05-14 13:20] LABS: Microalbum/Creatinine Ratio Ur 29.1 ug/mg cr (<30)
== END 2025-05-14 10:36 | disposition home or self-care (01) ==
LOC: HO.LAB 10:35
PROVIDERS: PCP Internal Medicine; Visit Provider Internal Medicine
DX: E11.9 Type 2 diabetes mellitus without complications (principal); R80.9 Proteinuria, unspecified; E55.9 Vitamin D deficiency, unspecified; E78.5 Hyperlipidemia, unspecified; E78.00 Pure hypercholesterolemia, unspecified
CPT/HCPCS: 36415; 80053; 80061; 82043; 82306; 82570

== ENCOUNTER 2025-05-16 11:29 | Outpatient (AMB) | payer MEDICARE, MEDICAID, SELFPAY ==
--- NOTE | 2025-05-16 11:36 | MHC.PC.OV ---
Vital Signs 05/16/25 11:37 05/16/25 12:03 Height 4 ft 11 in Weight 165 lb 8 oz BMI 33.4 BP 150/90 H 120/80 Blood Pressure Location Lt brachial Lt brachial Position Sitting Pulse 103 H Pulse Source Pulse Oximeter Temp 97.3 F Temp Source Temporal Artery Scan Pulse Oximetry (%) 95 Oxygen Delivery Method Room Air Intake Visit Reasons: bp Cattle Inspector Required: Yes Cattle Inspector Language: [place] Information Interpreted: non-clinical & clinical Information Scientist: Not Required per policy Accompanied by: Self / Same As Patient Allergies No Known Allergies Allergy (Verified 05/16/25 11:58) Medication List - Last Reconciled 05/16/25 by Iona Fisher MD atorvastatin 20 mg PO BEDTIME 90 days blood pressure test kit-medium As directed blood sugar diagnostic (FreeStyle Lite Strips) 1 strip miscellaneous DAILY 100 days blood-glucose meter (FreeStyle Lite Meter kit) As directed cholecalciferol (vitamin D3) 50 mcg PO DAILY 90 days lancets (TRUEplus Lancets) USE DIRECTED TO TEST BLOOD SUGAR EVERY DAY losartan 100 mg PO DAILY 90 days metformin 500 mg PO BID 90 days Tobacco use date assessed: 05/16/25 Last assessed Fall Risk: 05/16/25 Dental Screening Dental Screen Date: 05/16/25 HPI HPI Comments History of Present Illness Details This is a 75-year-old female with hypertension, diabetes mellitus type 2, pure hypercholesterolemia and low vitamin-D that comes today for follow-up on her conditions. Blood pressure elevated now but in the morning was 120/80. A1c within goal being 5.6% today. Cholesterol elevated and she has not been taking the statins because she ran out over a month ago. Also vitamin-D low than will be supplemented. No chest pain or shortness on breath. [facility]LY [facility] Medical History Obese Hypovitaminosis D Essential hypertension Surgical History Hx of removal of ovary History of tubal ligation Family History Father Cancer Mother Diabetes Social History Housing: Apartment Alcohol intake: never Patient Tobacco Use Status: Never used Tobacco e-Cigarette/Vaping Use: Never Used Second Hand Smoke Exposure: No service: No Current occupational status: disabled Cognitive needs: No Hearing needs: No Vision needs: No Questionnaire PHQ-9 Over the last 2 weeks, how often have you been bothered by any of the following problems? 1. Little interest or pleasure in doing things: not at all 2. Feeling down, depressed, or hopeless: not at all 3. Trouble falling or staying asleep, or sleeping too much: not at all 4. Feeling tired or having little energy: not at all 5. Poor appetite or overeating: not at all 6. Feeling bad about yourself - or that you are a failure or have let yourself or your family down: not at all 7. Trouble concentrating on things, such as reading the newspaper or watching television: not at all 8. Moving or speaking so slowly that other people could have noticed. Or the opposite - being so fidgety or restless that you have been moving around a lot more than usual: not at all 9. Thoughts that you would be better off or of hurting yourself in some way: not at all Total score: 0 Depression Screening Interpretation: Negative Depression Screening Done: Yes [id number] - PHQ-9 Billing: Yes Source: Developed by Drs. Melvin Pressley, Eloise Myers, Jose Luis Pinedo and colleagues, with an educational zahira from [employer]. Thrive Questionnaire Date Thrive assessed: 05/16/25 I am a: Patient What is your living situation today?: I have a steady place to live Within the past 12 months, did the food you bought not last and you didn't have the money to get more?: Never true Within the past 12 months, did you worry whether your food would run out before you got money to buy more?: Never true Do you have trouble paying for medicines?: No Do you have trouble getting transportation to medical appointments?: No Do you have trouble paying your heating and electricity bill?: No Do you have trouble taking care of your child, family member or friend?: No Do you have trouble with day-to-day activities such as bathing, preparing meals, shopping, managing finances, etc.?: No Are you currently unemployed and looking for a job?: No Are you interested in more education?: No Please select the resources that you would like help with: None Currently or been in a relationship where the following occur: No concerns reported THRIVE Score: 0 AUDIT C Alcohol Use Questionnaire (AUDIT-C) 1. How often do you have a drink containing alcohol?: Never 3. How often do you have six or more drinks on one occasion?: Never Total Score: 0 Score Reviewed/Action Taken: No JERRICA-7 AMB Questionnaire JERRICA-7 Date JERRICA - 7 assessed: 05/16/25 Feeling nervous, anxious, or on edge: 0 = Not at all Not being able to stop or control worryin = Not at all Worrying too much about different things: 0 = Not at all Trouble relaxin = Not at all Being so restless that it is hard to sit still: 0 = Not at all Becoming easily annoyed or irritable: 0 = Not at all Feeling afraid as if something awful might happen: 0 = Not at all Total JERRICA-7 score (0-4 normal; 5-9 mild; 10-14 moderate; 15-21 severe): 0 Source: Developed by Drs. Melvin Pressley, Eloise Myers, Jose Luis Pinedo and colleagues, with an educational zahira from [employer]. JERRICA-7 Assessment Billing JERRICA-7 Assessment Tool: JERRICA-7 Assessment 62015 Review of Systems Const All systems reviewed & are unremarkable except as noted in HPI and below Card Denies chest pain at rest, Denies chest pain with activity, Denies edema, Denies irregular heart rhythm, Denies claudication, Denies dyspnea, Denies dyspnea on exertion, Denies orthopnea, Denies paroxysmal nocturnal dyspnea and Denies slow heart rate Resp Denies cough, Denies dyspnea and Denies dyspnea on exertion GI Denies abdominal pain, Denies change in bowel habits, Denies excessive flatus, Denies nausea and Denies vomiting Physical exam (Primary Care) Vital Signs: Last Vital Signs Temp 97.3 F 05/16/25 11:37 Pulse 103 H 05/16/25 11:37 BP 120/80 05/16/25 12:03 Pulse Ox 95 05/16/25 11:37 Oxygen Delivery Method Room Air 05/16/25 11:37 BMI result Body Mass Index 33.4 Tobacco/Smoking Status: Tobacco use Status Tobacco use date assessed 05/16/25 05/16/25 11:41 Patient Tobacco Use Status Never used Tobacco 05/16/25 11:41 e-Cigarette/Vaping Use Never Used 05/16/25 11:41 PHQ-9: PHQ-9 Score PHQ-9: Total score 0 05/16/25 12:29 Depression Screening Interpretation: Negative Thrive Assessment: Date of Thrive Assessment Date Thrive assessed 05/16/25 05/16/25 11:41 Currently or been in a relationship where the following occur: No concerns reported Resp Effort & Inspection: normal respiratory effort Auscultation: clear to auscultation bilaterally Cardio Jugular venous distension: no JVD Rate: regular rate Rhythm: regular rhythm Heart sounds: S1 normal heart sound present and S2 normal heart sound present Extrem General: Yes full ROM Results AMB Hemoglobin A1c AMB Hemoglobin A1c 5.7 % Last Edit by Neena Schuster CMA on 05/16/25 12:09 Results Reviewed Results Reviewed: Laboratory Last Values Hgb A1c (Clinic) 5.7 % (4.0-6.0) 05/16/25 12:08 Coding Level of Care Code Est Pt Level 4 (26415) Complex EM visit Add On G2211 Diagnoses Type 2 diabetes mellitus without complication, without long-term current use of insulin E11.9 Diabetes mellitus complication status: without complication Diabetes mellitus intermediate frame tender insulin use: without intermediate frame tender use Diabetes mellitus type: type 2 Pure hypercholesterolemia E78.00 Essential hypertension I10 Hypovitaminosis D E55.9 Additional Codes JERRICA-7 Assessment Billing - JERRICA-7 Assessment Tool: JERRICA-7 Assessment 47772 ([id number]) PHQ-9 - 49702 - PHQ-9 Billing: Yes ([id number]) Time Spent (min) 21 Assessment & Plan Assessment & Plan (1) Diabetes mellitus: Code(s): E11.9 - Type 2 diabetes mellitus without complications Category: Medical Qualifiers: Diabetes mellitus complication status: without complication Diabetes mellitus fpc insulin use: without intermediate frame tender use Diabetes mellitus type: type 2 Qualified Code(s): E11.9 - Type 2 diabetes mellitus without complications (2) Pure hypercholesterolemia: Code(s): E78.00 - Pure hypercholesterolemia, unspecified Category: Medical (3) Essential hypertension: Code(s): I10 - Essential (primary) hypertension Category: Medical (4) Hypovitaminosis D: Code(s): E55.9 - Vitamin D deficiency, unspecified Category: Medical Plan Continue current meds. Repeat labs in 4 months. Orders: Orders Lipid Panel 4 Months E78.5 - Hyperlipidemia, unspecified Vitamin D 25-OH Total 4 Months E55.9 - Vitamin D deficiency, unspecified AMB Hemoglobin A1c 05/16/25 Z13.9 - Encounter for screening, unspecified Microalbumin, Random (w Creat) 4 Months R80.9 - Proteinuria, unspecified Vitamin B12 and Folate 4 Months E53.8 - Deficiency of other specified B group vitamins Comprehensive [place]. Panel Fast 4 Months E11.9 - Type 2 diabetes mellitus without complications Medications: New lancets (FreeStyle Lancets) As directed 100 ea 3RF Refilled atorvastatin 20 mg PO BEDTIME 90 tabs 1RF 90 days E78.00 - Pure hypercholesterolemia, unspecified cholecalciferol (vitamin D3) 50 mcg PO DAILY 90 tabs 3RF 90 days losartan 100 mg PO DAILY 90 tabs 3RF 90 days metformin 500 mg PO BID 180 tabs 1RF 90 days E11.9 - Type 2 diabetes mellitus without complications
[2025-05-16 11:37] VITALS: BP 150/90; PULSE 103; TEMP 36.3; O2SAT 95; BMI 33.4
[2025-05-16 12:03] VITALS: BP 120/80
== END 2025-05-16 12:11 | disposition home or self-care (01) ==
LOC: HO.HMCH 11:30
PROVIDERS: PCP Internal Medicine; Visit Provider Internal Medicine
DX: Z13.9 Encounter for screening, unspecified (principal)

== ENCOUNTER → 2025-05-16 11:29 | Outpatient (BNVA) | payer MEDICARE, MEDICAID, SELFPAY | PROVIDERS: PCP Internal Medicine; Visit Provider Internal Medicine | DX: I10 Essential (primary) hypertension (principal); E11.9 Type 2 diabetes mellitus without complications; E78.00 Pure hypercholesterolemia, unspecified; E55.9 Vitamin D deficiency, unspecified; E53.8 Deficiency of other specified B group vitamins; R80.9 Proteinuria, unspecified | CPT/HCPCS: 83036; 96127; 99212 ==